=== PATIENT | female | born 1985 | race Two or more races ===

== ENCOUNTER 2017-04-12 22:09 | Emergency (ER) | payer MEDICAID ==
[~2017-04-12] VITALS: Ht 154.9 cm; Wt 61.2 kg
--- NOTE | 2017-04-12 22:23 | NUR ---
PT PRESENTED TO THE ER WITH A C/O ALLERGIC REACTION. PT HAS REDNESS AND HIVES ALL OVER HER CHEST, ABD, BUE, AND BLE. PT DENIES SOB OR ANY EDEMA IN MOUTH/THROAT AREA. PT STATED THAT SHE ATE A COMORAN DISH AT [facility] AND FEELS THAT IT WAS MADE WITH PEANUT OIL. PT IS AA&O X4. RESP EVEN AND UNLABORED.
--- NOTE | 2017-04-12 22:25 | NUR ---
ANDREA RAMIREZ IS AT THE BEDSIDE EVALUATING THE PT.
[2017-04-12] MEDS ORDERED: diphenhydrAMINE HCL 50 MG/ML VIAL ONE (22:38)
[2017-04-12] MEDS ORDERED: DEXAMETHASONE SOD PHOSPHATE 10 MG/ML VIAL ONE (22:38)
[2017-04-12] MEDS ORDERED: FAMOTIDINE (20 MG) 20 MG TABLET ONE (22:39)
[2017-04-12] MEDS ORDERED: FAMOTIDINE (20 MG) 20 MG TABLET PO ONE (23:00)
[2017-04-12] MEDS ORDERED: DEXAMETHASONE SOD PHOSPHATE 4 MG/ML VIAL IM ONE (23:00)
[2017-04-12] MEDS ORDERED: diphenhydrAMINE HCL 50 MG/ML VIAL IM ONE (23:00)
--- NOTE | 2017-04-12 23:05 | NUR ---
HIVES AND REDNESS SEEMS TO BE REDUCING.
--- NOTE | 2017-04-12 23:15 | NUR ---
Patient discharged to home in stable condition. Written and verbal after care instructions given. Patient verbalizes understanding of instruction AND RX. PT AMBULATED OUT WITH A STEADY GAIT. VSS. PT'S HIVES ARE GETTING LESS. REDNESS IS REDUCING. PT'S FRIEND IS DRIVING PT HOME.
[2017-04-12 23:19] VITALS: BP 134/83
== END 2017-04-12 23:20 | disposition home or self-care (01) ==
LOC: ER 22:12
DX: T78.40XA Allergy, unspecified, initial encounter (principal); Z91.018 Allergy to other foods; X58.XXXA Exposure to other specified factors, initial encounter
CPT/HCPCS: 96372 ×2; 99284; A4606; J1100; J1200; Z7610

== ENCOUNTER 2017-04-14 20:02 | Emergency (ER) | payer MEDICAID ==
[~2017-04-14] VITALS: Ht 154.9 cm; Wt 59.0 kg
--- NOTE | 2017-04-14 20:16 | NUR ---
PT BIBSELF C/O HIVES "ALL OVER BODY", ITCHING X TUESDAY, SEEN LAST TUESDAY FOR SAME ISSUE GIVEN STEROIDS W/ NO RELIEF. PT AOX3 RR EVEN AND UNLABORED. NO SOB NOTED. NAD NOTED. NO NVD AT THIS PT GOWNED AND PLACED ON MONITOR. DR POPE AT BEDSIDE FOR EVAL
--- NOTE | 2017-04-14 20:35 | NUR ---
Patient discharged to home in stable condition. Written and verbal after care instructions given. Patient verbalizes understanding of instruction.
[2017-04-14 20:36] VITALS: BP 127/79
== END 2017-04-14 20:37 | disposition home or self-care (01) ==
LOC: ER 20:04
DX: L50.0 Allergic urticaria (principal)
CPT/HCPCS: 99283; A4606; Z7610